=== PATIENT | male | born 1960 | race Caucasian/White ===

== ENCOUNTER 2024-07-27 15:32 | Outpatient (CLI) | payer MEDICARE, OTHER, SELFPAY ==
--- NOTE | ~2024-07-27 | XR_ITS ---
AP and lateral views of the right hip Clinical history: Pain Findings: No acute fracture or dislocation is seen. Osseous alignment is anatomic. There is minimal d egenerative spurring at the superolateral acetabular margin. Soft tissues are unremarkable. Impression: Minimal degenerative change of the right hip joint. Reviewed, dictated and finalized at [facility]. [facility] [employer] Impression: Minimal degenerative change of the right hip joint.
--- NOTE | ~2024-07-27 | XR_ITS ---
Lumbosacral Spine: AP and lateral views Clinical History: Pain Findings: The normal lordotic curve is maintained. The vertebral bodies and posterior elements are i ntact. There is moderate degenerative disc narrowing at L1-L2, L2-L3, and L5-S1.. Moderate facet arth ropathy present throughout the lumbar spine. The sacroiliac joints are normally outlined. Impression: Moderate degenerative spondylosis, as above. Reviewed, dictated and finalized at [facility] [employer] [employer] Impression: Moderate degenerative spondylosis, as above.
== END 2024-07-27 15:33 | disposition home or self-care (01) ==
PROVIDERS: PCP Internal Medicine; Visit Provider Internal Medicine
DX: M16.11 Unilateral primary osteoarthritis, right hip (principal); M47.896 Other spondylosis, lumbar region; M47.897 Other spondylosis, lumbosacral region
CPT/HCPCS: 72100; 73502